=== PATIENT | male | born 1985 | race Two or more races ===

== ENCOUNTER 2018-09-11 10:48 | Inpatient (IN) | payer OTHER ==
[~2018-09-11] VITALS: Ht 175.3 cm; Wt 72.3 kg
[2018-09-11 10:56] VITALS: BP 116/70
[2018-09-11] MEDS ORDERED: PERCOCET 10-321 EACH ORAL (11:00)
[2018-09-11] MEDS ORDERED: RESTORIL22.5 MG PO (11:00)
--- NOTE | 2018-09-11 12:28 | Diagnostic Imaging Report ---
ADDENDUM - Added by Carlos Schwarz M.D. on 09/11/2018 1:11 PM (-07:00) Given irregularity of the posterior subcutaneous tissues and irregularity at the olecranon, if clinical concern for osteomyelitis dedicated MRI can be obtained. LEFT ELBOW, Views INDICATION: Pain COMPARISON: None FINDINGS: 4 views of the left elbow are obtained. Irregularity of the posterior subcutaneous tissues. There is irregularity of the olecranon seen with adjacent ossific density seen measuring 10 mm. No joint effusion. No radio-opaque foreign bodies. IMPRESSION: Irregularity of the posterior subcutaneous tissues. There is irregularity of the olecranon seen with adjacent ossific density seen measuring 10 mm. Correlation can be obtained with CT for further evaluation. <MYCVCSECTION> Critical Value Communications 09/11/18 13:10 Call From [facility] Jh HAMMOND on 09/11 13:08 (-07:00)
[2018-09-11 13:00] VITALS: BP 123/85
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
[2018-09-11 14:53] LABS: BASOPHILS % (AUTO) 1.1 % (0.0-2.0); EOSINOPHILS % (AUTO) 1.1 % (0.0-3.0); HEMATOCRIT 47.1 % (42.0-52.0); HEMOGLOBIN 15.7 G/DL (14.2-18.0); LYMPHOCYTES % (AUTO) 33.9 % (20.0-45.0); MEAN CORPUSCULAR VOLUME 88 FL (80-99); MONOCYTES % (AUTO) 6.7 % (1.0-10.0); NEUTROPHILS % (AUTO) 57.2 % (45.0-75.0); PLATELET COUNT 240 K/UL (150-450); RED BLOOD COUNT 5.37 M/UL (4.70-6.10); WHITE BLOOD COUNT 8.7 K/UL (4.8-10.8)
[2018-09-11 15:03] LABS: ANION GAP 10 mmol/L (5-15); BLOOD UREA NITROGEN 20 mg/dL (7-18); CALCIUM 9.3 MG/DL (8.5-10.1); CARBON DIOXIDE 26 MMOL/L (21-32); CHLORIDE 101 MMOL/L (98-107); CREATININE 1.3 MG/DL (0.55-1.30); POTASSIUM 4.4 MMOL/L (3.5-5.1); SODIUM 137 MMOL/L (136-145)
[2018-09-11 15:13] LABS: ALANINE AMINOTRANSFERASE 23 U/L (12-78); ALBUMIN 3.8 G/DL (3.4-5.0); ALBUMIN/GLOBULIN RATIO 0.9 (1.0-2.7); ALKALINE PHOSPHATASE 86 U/L (46-116); ASPARTATE AMINO TRANSFERASE 30 U/L (15-37); BILIRUBIN,TOTAL 0.3 MG/DL (0.2-1.0); CREATINE KINASE 187 U/L (26-308)
[2018-09-11] MEDS ORDERED: Vancomycin 1 GM in NS 275 ML IVPB ONE (15:15)
[2018-09-11 15:24] VITALS: BP 115/79
[2018-09-11 16:32] LABS: APPEARANCE,URINE CLEAR; BILIRUBIN, URINE NEGATIVE (NEGATIVE); COLOR,URINE PALE YELLOW; GLUCOSE, URINE (UA) NEGATIVE (NEGATIVE); KETONES,URINE NEGATIVE (NEGATIVE); LEUKOCYTE ESTERASE ,URINE NEGATIVE (NEGATIVE); NITRITE,URINE NEGATIVE (NEGATIVE); PH,URINE 5 (4.5-8.0); PROTEIN,URINE NEGATIVE (NEGATIVE); UROBILINOGEN,URINE NORMAL MG/DL (0.0-1.0)
--- NOTE | 2018-09-11 17:30 | General Progress Note ---
Assessment/Plan Status Narrative H AND P DICTATED ORTHO AND ID TO SEE Subjective Date patient seen: Sep 11, 2018 Time patient seen: 17:29 Constitutional: Reports: no symptoms HEENT: Reports: no symptoms Cardiovascular: Reports: no symptoms Respiratory: Reports: no symptoms Gastrointestinal/Abdominal: Reports: no symptoms Genitourinary: Reports: no symptoms Allergies: Coded Allergies: NSAIDS (NON-STEROIDAL ANTI-INFLAMMA (Verified Allergy, Unknown, 09/11/18) Objective Last 24 Hour Vital Signs Date Time Temp Pulse Resp B/P (MAP) Pulse Ox O2 Delivery O2 Flow Rate FiO2 09/11/18 15:24 98.2 78 20 115/79 98 Room Air 09/11/18 13:00 98.6 82 18 123/85 100 Room Air 09/11/18 10:56 98.4 19 116/70 97 Room Air 09/11/18 10:56 98.4 82 19 116/70 97 Room Air Laboratory Tests 09/11/18 14:10: White Blood Count 8.7, Red Blood Count 5.37, Hemoglobin 15.7, Hematocrit 47.1, Mean Corpuscular Volume 88, Mean Corpuscular Hemoglobin 29.3, Mean Corpuscular Hemoglobin Concent 33.4, Red Cell Distribution Width 12.0, Platelet Count 240, Mean Platelet Volume 5.5L, Neutrophils (%) (Auto) 57.2, Lymphocytes (%) (Auto) 33.9, Monocytes (%) (Auto) 6.7, Eosinophils (%) (Auto) 1.1, Basophils (%) (Auto ) 1.1, Prothrombin Time 10.8, Prothromb Time International Ratio 1.0, Activated Partial Thromboplast Time 26, Sodium Level 137, Potassium Level 4.4, Chloride Level 101, Carbon Dioxide Level 26, Anion Gap 10, Blood Urea Nitrogen 20H, Creatinine 1.3, Estimat Glomerular Filtration Rate > 60, Glucose Level 105, Lactic Acid Level 1.30, Calcium Level 9.3, Magnesium Level 2.3, Total Bilirubin 0.3, Aspartate Amino Transf (AST/SGOT) 30, Alanine Aminotransferase (ALT/SGPT) 23, Alkaline Phosphatase 86, Total Creatine Kinase 187, Troponin I 0.000, C- Reactive Protein, Quantitative 0.7, Pro-B-Type Natriuretic Peptide 12, Total Protein 8.2, Albumin 3.8, Globulin 4.4, Albumin/Globulin Ratio 0.9L 09/11/18 15:20: Erythrocyte Sedimentation Rate 12 09/11/18 15:49: Urine Color Pale yellow, Urine Appearance Clear, Urine pH 5, Urine Specific [place] 1.015, Urine Protein Negative, Urine Glucose (UA) Negative, Urine Ketones Negative, Urine Blood Negative, Urine Nitrite Negative, Urine Bilirubin Negative, Urine Urobilinogen Normal, Urine Leukocyte Esterase Negative, Urine Opiates Screen PositiveH, Urine Barbiturates Screen Negative, Phencyclidine (PCP ) Screen Negative, Urine Amphetamines Screen Negative, Urine Benzodiazepines Screen PositiveH, Urine Cocaine Screen PositiveH, Urine Marijuana (THC) Screen PositiveH Height (Feet): 5 Height (Inches): 9.00 Weight (Pounds): 165 Objective LWEFT ELBOW HAS OPENWOPUND AND BONE IS VISIULAIZED. Mt Pham MD Sep 11, 2018 17:30
[2018-09-11 18:00] VITALS: BP 123/80
[2018-09-11] MEDS ORDERED: EMERGEN-C 1,01000 MG PO (19:26)
[2018-09-11] MEDS ORDERED: ZINC30 M1 ORAL (19:26)
[2018-09-11] MEDS ORDERED: XANAX2 MG ORAL (19:26)
[2018-09-11] MEDS ORDERED: TEMAZEPAM30 MG ORAL (19:26)
[2018-09-11] MEDS ORDERED: VISTARIL10 MG ORAL (19:30)
[2018-09-11 20:12] VITALS: BP 131/76
[2018-09-11] MEDS ORDERED: HydrOXYzine 50mg tab ORAL PRN (20:30)
[2018-09-11] MEDS: oxyCODONE HCL/Acetaminophen 5/325mg ORAL PRN (20:41)
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
[2018-09-12] VITALS (13 sets, daily range): BP systolic 126–150; BP diastolic 57–98
[2018-09-12] MEDS: oxyCODONE HCL/Acetaminophen 5/325mg ORAL PRN (01:05)
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
[2018-09-12] MEDS: Vancomycin 1gm/D5W 275ml IVPB SCH ×4 (04:16→16:38)
[2018-09-12] MEDS: ALPRAZolam 0.5mg tab ORAL PRN (04:16)
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
--- NOTE | 2018-09-12 11:33 | Diagnostic Imaging Report ---
Indication: Shortness of breath Technique: One view of the chest Comparison: none Findings: Lungs and pleural spaces are clear. Heart size is normal Impression: No acute process
[2018-09-12] MEDS ORDERED: Hydromorphone 0.5mg/0.5ml inj IVP SCH (13:30)
[2018-09-12] MEDS ORDERED: oxyCODONE HCL/Acetaminophen 5/325mg ORAL PRN ×2 (13:30→18:00)
--- NOTE | 2018-09-12 14:34 | Diagnostic Imaging Report ---
Indication: Open wound in the elbow, abnormal recent radiograph Technique: Axial, sagittal and coronal T1-weighted images, sagittal and axial STIR, coronal T2 fat saturated PROPELLER images of the elbow Comparison: Reference made to plain radiograph 09/11/2018 Findings: There is marked increased STIR and decreased T1 signal involving the olecranon of the ulna, also extending into the proximal shaft and coronoid process. Overlying this, there is marked soft tissue irregularity and edema. There is questionably some gas within the soft tissues. There is bony proliferation of the posterior distal ulna, also demonstrated on prior radiographs, but this does not demonstrate any significant marrow signal abnormality. The posterior osseous fragments demonstrated on the plain radiograph are not well demonstrated. No definite marrow signal abnormality of the humerus or the radius is demonstrated. No significant joint effusion demonstrated. Impression: Evidence of soft tissue ulceration and inflammation of the posterior elbow, correlating with clinical findings. Marked marrow signal abnormality involving the olecranon of the ulna extending into the proximal shaft and coronoid. This is highly suspicious for osteomyelitis No definite evidence of soft tissue abscess Patient's nurse notified of the findings at the time of interpretation
[2018-09-12] MEDS ORDERED: Lidocaine 1% 10mg/ml/EPI 0.01mg/ml 50ml INJ ONE (16:36)
[2018-09-12] MEDS ORDERED: NeoSporin Gu Irrig 1ml Amp IRRIG ONE (16:36)
[2018-09-12] MEDS ORDERED: Bacitracin 50000 Units Vial ONE (16:36)
[2018-09-12] MEDS ORDERED: LR 1000ml ONE (17:30)
[2018-09-12] MEDS ORDERED: Sterile Water Irrig 1000ml IRRIG ONE (17:30)
[2018-09-12] MEDS ORDERED: NS Irrig 1000ml ONE (17:30)
[2018-09-12] MEDS ORDERED: Lidocaine 1% MPF 10mg/ml 5ml ONE (17:32)
[2018-09-12] MEDS ORDERED: Propofol 200mg/20ml IV ONE (17:32)
[2018-09-12] MEDS ORDERED: Dexamethasone 4mg/ml vial ONE (17:32)
[2018-09-12] MEDS ORDERED: Sodium Chloride 10ml vial INJ ONE (17:32)
--- NOTE | 2018-09-12 17:34 | Pre-Procedure Note/Attestation ---
Pre-Procedure Note/Attestation Complete Prior to Procedure Planned Procedure: left Procedure Narrative: Resection left elbow ulcer in preparation for skin grafting/flap, Possible bone resection Attestation I attest that I discussed the nature of the procedure; its benefits; risks and complications; and alternatives (and the risks and benefits of such alternatives ), prior to the procedure, with the patient (or the patient's legal sales account representative). I attest that, if there was a reasonable possibility of needing a blood transfusion, the patient (or the patient's legal sales account representative) was given the [facility] standardized written summary, pursuant to the Betito Marcus Blood Safety Act ([place] Health and Safety Code # 1645, as amended). I attest that I re-evaluated the patient just prior to the surgery and that there has been no change in the patient's H&P, except as documented below: Haja Prescott MD Sep 12, 2018 17:34
[2018-09-12] MEDS ORDERED: LR 1000ml 1,000 ML IVLG SCH (17:55)
[2018-09-12] MEDS ORDERED: fentaNYL 100 mcg/2 mL IV PRN (18:00)
[2018-09-12] MEDS ORDERED: ProvayBlue 5mg/ml 10ml amp INJ ONE (18:00)
[2018-09-12] MEDS ORDERED: DiphenhydrAMINE 50mg/ml Inj IVP PRN (18:00)
[2018-09-12] MEDS ORDERED: Midazolam 2mg/2ml Inj IVP PRN (18:00)
[2018-09-12] MEDS ORDERED: HYDROcodone/Acetamin 5/325 tab ORAL PRN (18:00)
[2018-09-12] MEDS ORDERED: Atropine Sulfate 0.4mg/ml inj IVP PRN (18:00)
[2018-09-12] MEDS ORDERED: Labetalol 5mg/ml 20ml vial IV PRN (18:00)
[2018-09-12] MEDS ORDERED: HYDROcodone/Acetamin 7.5/325 tab ORAL PRN (18:00)
[2018-09-12] MEDS ORDERED: LORazepam Inj 2mg/ml 1ml IV PRN (18:00)
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
--- NOTE | 2018-09-12 18:07 | Immediate Post-Op Evaluation ---
Immediate Post-Op Evalulation Immediate Post-Op Evalulation Procedure: I and D L Arm Date of Evaluation: Sep 12, 2018 Time of Evaluation: 19:09 IV Fluids: 500 LR Blood Products: 0 Estimated Blood Loss: 20 Urinary Output: 0 Blood Pressure Systolic: 134 Blood Pressure Diastolic: 95 Pulse Rate: 79 Respiratory Rate: 16 O2 Sat by Pulse Oximetry: 99 Temperature (Fahrenheit): 98.4 Pain Score (1-10): 2 Nausea: No Vomiting: No Complications 0 Patient Status: awake, reacts, patent, extubated, none Hydration Status: adequate Dru Gram Vancomycin IV Given Within 1 Hr of Incision: Yes Time Given: 17:42 Nato Cedeno MD Sep 12, 2018 18:07
--- NOTE | 2018-09-12 18:57 | Brief Operative Note ---
Immediate Post Operative Note Operative Note Pre-op Diagnosis: Left elbow chronic wound, osteomyelitis left elbow Procedure: Resection of left elbow wound in preparation for graft/flap, deep open bone biopsy of olecranon, debridement of left triceps tendon, application of negative pressure dressing, application of posterior extension splint. Post-op Diagnosis: same as pre-op Surgeon: Haja Prescott MD Additional Surgeons: Salvatore Agrawal MD Anesthesiologist: Nato Cedeno Anesthesia: general, local Specimen: yes Complications: none Condition: stable Fluids: IVF Estimated Blood Loss: minimal Drains: wound vac Implant(s) used?: No Haja Prescott MD Sep 12, 2018 18:57
[2018-09-12] MEDS: Hydromorphone 0.5mg/0.5ml inj IVP PRN ×2 (19:15→19:31)
--- NOTE | 2018-09-12 19:37 | Cardiology Report ---
APPROVED REPORT EKG Measurement Heart [id number] Normal sinus rhythm Normal ECG
--- NOTE | 2018-09-12 21:55 | General Progress Note ---
Assessment/Plan Status Narrative s/p suirgery wound vac in place unlikley he will get a positive culture will add zosyn get id to see him and will follow Assessment/Plan vanco zosyn wound vac pain control get ID eval Subjective Date patient seen: Sep 12, 2018 Time patient seen: 21:53 Constitutional: Reports: no symptoms Allergies: Coded Allergies: NSAIDS (NON-STEROIDAL ANTI-INFLAMMA (Verified Allergy, Unknown, 09/11/18) Subjective has a lot of pain no nausea no vomtiting no ches tpain Objective Last 24 Hour Vital Signs Date Time Temp Pulse Resp B/P (MAP) Pulse Ox O2 Delivery O2 Flow Rate FiO2 09/12/18 21:00 Room Air 09/12/18 20:00 98.1 68 18 140/93 (109) 97 09/12/18 19:45 98.6 69 19 131/91 98 Room Air 09/12/18 19:45 98.6 09/12/18 19:31 70 17 133/92 98 Room Air 09/12/18 19:25 71 18 150/92 98 Room Air 09/12/18 19:15 70 15 142/98 100 Room Air 09/12/18 19:08 68 14 140/88 100 Room Air 09/12/18 19:03 69 19 138/92 99 Simple Mask 6 09/12/18 18:58 98.4 79 16 134/89 99 Simple Mask 6 09/12/18 18:56 79 16 99 09/12/18 16:00 97.7 79 19 136/90 (105) 98 09/12/18 14:07 98.1 09/12/18 12:00 98.1 78 18 145/82 (103) 97 09/12/18 09:00 Room Air 09/12/18 08:00 98.2 83 19 126/77 (93) 97 09/12/18 04:44 97.7 73 18 133/77 (95) 99 09/12/18 01:35 98.2 09/12/18 00:00 98.2 64 18 127/57 (80) 99 Intake and Output 09/11/18 09/12/18 18:59 06:59 Intake Total 575.0 ml 240 ml Balance 575.0 ml 240 ml Intake Oral 240 ml IV Total 575.0 ml # Voids 1 Height (Feet): 5 Height (Inches): 9.00 Weight (Pounds): 165 General Appearance: WD/WN Neck: non-tender Cardiovascular: normal rate, regular rhythm, no JVD Respiratory/Chest: lungs clear Abdomen: soft Extremities: other - wouind vac in place Objective LWEFT ELBOW HAS OPENWOPUND AND BONE IS VISIULAIZED. Mt Pham MD Sep 12, 2018 21:55
[2018-09-12] MEDS ORDERED: Piperacillin/Tazobactam 3.375 GM in NS 110 ML IVPB SCH ×4 (22:00)
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
[2018-09-13] VITALS (7 sets, daily range): BP systolic 111–128; BP diastolic 61–82
[2018-09-13] MEDS: Vancomycin 1gm/D5W 275ml IVPB SCH ×6 (05:45→19:34)
[2018-09-13] MEDS: Piperacillin/Tazobactam 3.375 GM in NS 110 ML IVPB SCH ×3 (07:34→23:00)
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
[2018-09-13] MEDS: HYDROmorphone 1mg/ml Carpuject IVP PRN ×4 (08:17→22:53)
--- NOTE | 2018-09-13 08:47 | 48 Hour Post Anesthesia Eval ---
Post Anesthesia Evaluation Procedure: I and D L Arm Date of Evaluation: Sep 13, 2018 Airway: patent Nausea: No Vomiting: No Pain Intensity: 2 Hydration Status: adequate Cardiopulmonary Status: at baseline Mental Status/LOC: patient returned to baseline Post-Anesthesia Complications: 0 Follow-up care needed: N/A - further care as per primary team Georgina Claros MD Sep 13, 2018 08:47
--- NOTE | 2018-09-13 19:42 | General Progress Note ---
Assessment/Plan Assessment/Plan WOUND INFECTION CULTYURS MIGHT NOT BECOME POSITIVE HE WAS ON ANTIBIOTIC \PAINCONTROL [facility] WITH IV ANTIBIOITIC. Subjective Date patient seen: Sep 13, 2018 Time patient seen: 19:40 Constitutional: Reports: no symptoms HEENT: Reports: no symptoms Cardiovascular: Reports: no symptoms Respiratory: Reports: no symptoms Allergies: Coded Allergies: NSAIDS (NON-STEROIDAL ANTI-INFLAMMA (Verified Allergy, Unknown, 09/11/18) Subjective HAS PAIN GETTING DIALUDID NO FEVER NO CHILLS Objective Last 24 Hour Vital Signs Date Time Temp Pulse Resp B/P (MAP) Pulse Ox O2 Delivery O2 Flow Rate FiO2 09/13/18 18:29 99.5 09/13/18 17:11 99.5 09/13/18 16:00 98.9 80 19 128/82 (97) 99 09/13/18 12:00 98.4 69 19 118/77 (91) 99 09/13/18 09:00 Room Air 09/13/18 08:00 99.5 73 19 127/82 (97) 99 09/13/18 04:00 97.2 71 18 117/62 (80) 98 09/13/18 00:00 97.8 75 18 123/76 (92) 97 09/12/18 21:00 Room Air 09/12/18 20:00 98.1 68 18 140/93 (109) 97 09/12/18 19:45 98.6 69 19 131/91 98 Room Air 09/12/18 19:45 98.6 Intake and Output 09/12/18 09/13/18 18:59 06:59 Intake Total 600 ml 1560 ml Output Total 20 ml 1405 ml Balance 580 ml 155 ml Intake Oral 100 ml 960 ml IV Total 500 ml 600 ml Output Urine Total 1400 ml Drainage Total 5 ml Estimated Blood Loss 20 ml # Voids 2 3 # Bowel Movements 1 Laboratory Tests 09/13/18 04:00: Vancomycin Level Trough 4.7L Height (Feet): 5 Height (Inches): 9.00 Weight (Pounds): 165 General Appearance: no apparent distress EENT: PERRL/EOMI Neck: supple Cardiovascular: no JVD Respiratory/Chest: lungs clear Abdomen: soft Objective LWEFT ELBOW HAS OPENWOPUND AND BONE IS VISIULAIZED. Mt Pham MD Sep 13, 2018 19:42
[2018-09-13] MEDS: ALPRAZolam 0.5mg tab ORAL PRN (21:17)
[2018-09-14] VITALS: BP 133/80
[2018-09-14] MEDS: Vancomycin 1gm/D5W 275ml IVPB SCH ×8 (03:00→19:54)
[2018-09-14 04:00] VITALS: BP 121/74
[2018-09-14] MEDS: HYDROmorphone 1mg/ml Carpuject IVP PRN ×3 (05:59→21:04)
[2018-09-14] MEDS: Piperacillin/Tazobactam 3.375 GM in NS 110 ML IVPB SCH ×3 (06:00→21:03)
[2018-09-14 08:00] VITALS: BP 115/77
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
[2018-09-14 12:00] VITALS: BP 116/68
[2018-09-14 16:00] VITALS: BP 130/76
[2018-09-14 20:00] VITALS: BP 133/76
--- NOTE | 2018-09-14 20:08 | General Progress Note ---
Assessment/Plan Assessment/Plan WOUND INFECTION CULTYURS MIGHT NOT BECOME POSITIVE HE WAS ON ANTIBIOTIC \PAINCONTROL [facility] WITH IV ANTIBIOITIC. culture so fa rnegative per id Subjective Date patient seen: Sep 14, 2018 Time patient seen: 20:08 Constitutional: Reports: no symptoms HEENT: Reports: no symptoms Cardiovascular: Reports: no symptoms Respiratory: Reports: no symptoms Gastrointestinal/Abdominal: Reports: no symptoms Allergies: Coded Allergies: NSAIDS (NON-STEROIDAL ANTI-INFLAMMA (Verified Allergy, Unknown, 09/11/18) Subjective HAS PAIN GETTING DIALUDID NO FEVER NO CHILLS Objective Last 24 Hour Vital Signs Date Time Temp Pulse Resp B/P (MAP) Pulse Ox O2 Delivery O2 Flow Rate FiO2 09/14/18 16:00 98.6 84 18 130/76 (94) 98 09/14/18 15:51 98.4 09/14/18 14:02 98.4 09/14/18 12:00 98.4 83 19 116/68 (84) 100 09/14/18 09:00 Room Air 09/14/18 08:00 97.6 99 18 115/77 (90) 94 09/14/18 04:00 98.1 74 18 121/74 (90) 100 09/14/18 00:00 98.0 79 18 133/80 (97) 99 09/13/18 22:19 98.4 77 17 111/61 (78) 99 09/13/18 21:00 Room Air Intake and Output 09/13/18 09/14/18 19:00 07:00 Intake Total 2242.5 ml 855.0 ml Output Total 10 ml 10 ml Balance 2232.5 ml 845.0 ml Intake Oral 1500 ml 800 ml IV Total 742.5 ml 55.0 ml Drainage Total 10 ml 10 ml # Voids 3 3 # Bowel Movements 1 1 Laboratory Tests 09/13/18 23:11: Vancomycin Level Trough 18.3H Height (Feet): 5 Height (Inches): 9.00 Weight (Pounds): 164 General Appearance: WD/WN EENT: PERRL/EOMI Cardiovascular: normal rate, regular rhythm, no JVD Respiratory/Chest: lungs clear Extremities: other - wound vac in place Objective LWEFT ELBOW HAS OPENWOPUND AND BONE IS VISIULAIZED. Mt Pham MD Sep 14, 2018 20:08
[2018-09-14] MEDS: ALPRAZolam 0.5mg tab ORAL PRN (23:07)
--- NOTE | 2018-09-14 23:15 | Progress Note ---
DATE: 09/14/2018 NOTE: "POOR AUDIO QUALITY" SUBJECTIVE: The patient is status post I and D of left elbow. He is doing well. Pain is substantially improved. He had a VAC change earlier today. OBJECTIVE: GENERAL: The patient is alert and oriented. He is resting comfortably at this time in bed. EXTREMITIES/SKIN: He has a VAC in place. ASSESSMENT: Status post I and D, left elbow. DISCUSSION: At this point, he has had VAC treatment after debridement. He is going to require serial wound evaluations. Hopefully with VAC treatment, the defect will be substantially improved and allograft dermal matrix can be applied in the event that the skin does not close and ultimately skin graft would be an option at a later date. At this point, they will continue with the IV antibiotics given that there was evidence of osteomyelitis. He is to continue the VAC treatment as well. Robin Agrawal M.D. DR: Shraddha JOB#: [id number] CC: MAYNOR
[2018-09-15] VITALS (7 sets, daily range): BP systolic 118–159; BP diastolic 68–82
[2018-09-15] MEDS: HYDROmorphone 1mg/ml Carpuject IVP PRN ×3 (03:06→17:35)
[2018-09-15] MEDS: Vancomycin 1gm/D5W 275ml IVPB SCH ×8 (03:06→20:58)
[2018-09-15] MEDS: Piperacillin/Tazobactam 3.375 GM in NS 110 ML IVPB SCH (05:34)
[2018-09-15] MEDS: ALPRAZolam 0.5mg tab ORAL PRN ×3 (06:53→20:57)
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
[2018-09-15] MEDS: cefTRIAXone 1 GM in D5W 55 ML IVPB SCH (11:44)
[2018-09-15] MEDS ORDERED: Lidocaine 1% Plain 30 ml INJ PRN (13:15)
[2018-09-15] MEDS ORDERED: Heparin1,000 units/500ml Premix(Conc:2 units/ml) IV PRN (13:15)
--- NOTE | 2018-09-15 14:10 | General Progress Note ---
Assessment/Plan Assessment/Plan osteomyelitis needs 6 weeks antibiotic vanco ceftriazone and flagyl needs to be placed in senior living or stay in the hospital for duratin of treatmetn. Subjective Date patient seen: Sep 15, 2018 Time patient seen: 14:08 Constitutional: Reports: no symptoms HEENT: Reports: no symptoms Gastrointestinal/Abdominal: Reports: no symptoms Allergies: Coded Allergies: NSAIDS (NON-STEROIDAL ANTI-INFLAMMA (Verified Allergy, Unknown, 09/11/18) Subjective HAS PAIN GETTING DIALUDID NO FEVER NO CHILLS Objective Last 24 Hour Vital Signs Date Time Temp Pulse Resp B/P (MAP) Pulse Ox O2 Delivery O2 Flow Rate FiO2 09/15/18 12:44 98.9 77 16 120/82 (95) 98 09/15/18 12:30 97.9 09/15/18 09:24 97.9 09/15/18 09:00 Room Air 09/15/18 08:00 98.9 77 16 120/82 (95) 98 09/15/18 08:00 97.6 92 16 118/77 (91) 98 09/15/18 04:00 97.9 69 16 122/68 (86) 99 09/15/18 00:00 98.6 78 18 122/73 (89) 98 09/14/18 21:00 Room Air 09/14/18 20:00 97.9 74 20 133/76 (95) 99 09/14/18 16:00 98.6 84 18 130/76 (94) 98 Intake and Output 09/14/18 09/15/18 19:00 07:00 Intake Total 1727.332 ml 779.916 ml Output Total 20 ml Balance 1707.332 ml 779.916 ml Intake Oral 800 ml IV Total 927.332 ml 779.916 ml Drainage Total 20 ml # Voids 4 3 Height (Feet): 5 Height (Inches): 9.00 Weight (Pounds): 164 General Appearance: WD/WN Cardiovascular: no JVD Respiratory/Chest: lungs clear Abdomen: non tender, soft Objective LWEFT ELBOW HAS OPENWOPUND AND BONE IS VISIULAIZED. Mt Pham MD Sep 15, 2018 14:10
[2018-09-15] MEDS ORDERED: HYDROcodone/Acetamin 10/325 tab ORAL PRN ×2 (14:30→18:30)
--- NOTE | 2018-09-15 14:41 | Diagnostic Imaging Report ---
Indications: Needs long-term IV access Technique: Ultrasound confirms patent compressible right basilic vein. Total sterile technique, including sterile probe cover and sterile gel, hat, mask, sterile gown, large sterile drape, and preparation with 2% chlorhexidine utilized. Local anesthesia with 1% lidocaine. Under real-time ultrasound guidance, puncture basilic vein using 21-gauge needle, documented and archived, passage 0.018 guidewire under direct fluoroscopy, which was used to determine appropriate catheter length, exchange for 4 Setswana peel-away sheath. 4 Setswana Bard dual-lumen power PICC cut to 41 cm. It was inserted through the peel-away sheath. Peel-away sheath and guidewire removed. Catheter fixed to the skin. Both catheter ports aspirated and flushed. Patient tolerated procedure well, without immediate complication. Digital radiograph documents satisfactory catheter tip position, at the cavoatrial junction. Total fluoroscopy time 18.2 seconds. Total dose area product 1. mGym2 Total number of images: 1 Impression: Successful placement of right arm PICC under sonographic and fluoroscopic guidance, as described above.
[2018-09-15] MEDS ORDERED: HYDROmorphone 1mg/ml Carpuject IVP PRN (14:45)
[2018-09-15] MEDS: metroNIDAZOLE 500mg tab ORAL SCH ×2 (15:14→21:02)
[2018-09-15] MEDS ORDERED: Tubing IV Secondary IV ONE (15:29)
[2018-09-15] MEDS ORDERED: NS 500ML ONE (15:29)
[2018-09-15] MEDS: HYDROcodone/Acetamin 10/325 tab ORAL PRN ×2 (15:43→20:58)
[2018-09-15] MEDS: Dyna-Hex 2% Top Sol 2oz TOPIC SCH (20:58)
[2018-09-16] MEDS: HYDROcodone/Acetamin 10/325 tab ORAL PRN ×4 (00:52→20:27)
[2018-09-16] MEDS: Vancomycin 1gm/D5W 275ml IVPB SCH ×8 (01:54→20:51)
[2018-09-16] MEDS: HYDROmorphone 1mg/ml Carpuject IVP PRN ×3 (01:54→17:22)
[2018-09-16 04:00] VITALS: BP 143/82
[2018-09-16] MEDS: HydrOXYzine 50mg tab ORAL PRN (05:07)
[2018-09-16] MEDS: metroNIDAZOLE 500mg tab ORAL SCH ×3 (05:07→22:41)
[2018-09-16 08:00] VITALS: BP 152/71
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
[2018-09-16 12:00] VITALS: BP 137/78
[2018-09-16] MEDS: cefTRIAXone 1 GM in D5W 55 ML IVPB SCH (13:14)
[2018-09-16] MEDS ORDERED: NS 500ML ONE (15:53)
[2018-09-16] MEDS ORDERED: Tubing IV Secondary IV ONE (15:53)
[2018-09-16 16:00] VITALS: BP 143/80
[2018-09-16 20:00] VITALS: BP 145/82
[2018-09-16] MEDS: Dyna-Hex 2% Top Sol 2oz TOPIC SCH (20:27)
--- NOTE | 2018-09-16 21:10 | General Progress Note ---
Assessment/Plan Problem List: (1) Osteomyelitis ICD Codes: M86.9 - Osteomyelitis, unspecified SNOMED: 14702440 Qualifiers: Qualified Codes: M86.222 - Subacute osteomyelitis, left humerus (2) Skin ulcer ICD Codes: L98.499 - Non-pressure chronic ulcer of skin of other sites with unspecified severity SNOMED: 62213659 Qualifiers: Qualified Codes: L98.499 - Non-pressure chronic ulcer of skin of other sites with unspecified severity (3) Substance abuse ICD Codes: F19.10 - Other psychoactive substance abuse, uncomplicated SNOMED: 58633755 Assessment/Plan Abxs wound care Discussed with Dr Pham and family and RN Subjective Allergies: Coded Allergies: NSAIDS (NON-STEROIDAL ANTI-INFLAMMA (Verified Allergy, Unknown, 09/11/18) Subjective In NAD Objective Last 24 Hour Vital Signs Date Time Temp Pulse Resp B/P (MAP) Pulse Ox O2 Delivery O2 Flow Rate FiO2 09/16/18 16:00 99.8 143/80 (101) 09/16/18 12:00 99.0 137/78 (97) 09/16/18 09:00 Room Air 09/16/18 08:00 98.2 152/71 (98) 09/16/18 04:00 98.4 74 18 143/82 (102) 98 Intake and Output 09/15/18 09/16/18 19:00 07:00 Intake Total 600 ml 1250.000 ml Output Total 0 ml Balance 600 ml 1250.000 ml Intake Oral 600 ml 700 ml IV Total 550.000 ml Drainage Total 0 ml # Voids 4 3 # Bowel Movements 2 Laboratory Tests 09/16/18 14:15: Vancomycin Level Trough 22.8H Height (Feet): 5 Height (Inches): 9.00 Weight (Pounds): 164 Cardiovascular: normal rate Respiratory/Chest: lungs clear Abdomen: soft Edema: no edema noted Generalized Jerson Arredondo MD Sep 16, 2018 21:10
[2018-09-16] MEDS: ALPRAZolam 0.5mg tab ORAL PRN (22:41)
[2018-09-17] VITALS: BP 147/77
--- NOTE | 2018-09-17 02:45 | Progress Note ---
DATE: 09/16/2018 SUBJECTIVE: The patient has no issues overnight. His pain is relatively well controlled. Examination shows VAC in place, posterior splint is in place. Neurovascular exam is normal. ASSESSMENT: Status post incision and drainage of the left elbow. DISCUSSION: At this point, he is on 6 weeks of IV antibiotics. We will continue to do local wound care and re-evaluate his wound next week to see if it has gotten substantially smaller. In the meantime, he is going to continue on IV antibiotics. Robin Agrawal M.D. DR: Lenard JOB#: [id number] CC: MAYNOR
[2018-09-17] MEDS: Vancomycin 1gm/D5W 275ml IVPB SCH ×6 (03:00→15:25)
[2018-09-17] MEDS: HYDROmorphone 1mg/ml Carpuject IVP PRN ×3 (03:00→19:10)
[2018-09-17 04:00] VITALS: BP 147/76
[2018-09-17] MEDS: HYDROcodone/Acetamin 10/325 tab ORAL PRN ×4 (06:01→21:19)
[2018-09-17] MEDS: metroNIDAZOLE 500mg tab ORAL SCH ×3 (06:01→21:19)
[2018-09-17 08:00] VITALS: BP 169/75
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
[2018-09-17] MEDS: cefTRIAXone 1 GM in D5W 55 ML IVPB SCH (11:43)
[2018-09-17 12:00] VITALS: BP 148/71
[2018-09-17 16:00] VITALS: BP 137/79
--- NOTE | 2018-09-17 19:11 | General Progress Note ---
Assessment/Plan Problem List: (1) Osteomyelitis ICD Codes: M86.9 - Osteomyelitis, unspecified SNOMED: 45580899 Qualifiers: Qualified Codes: M86.222 - Subacute osteomyelitis, left humerus (2) Skin ulcer ICD Codes: L98.499 - Non-pressure chronic ulcer of skin of other sites with unspecified severity SNOMED: 52251565 Qualifiers: Qualified Codes: L98.499 - Non-pressure chronic ulcer of skin of other sites with unspecified severity (3) Substance abuse ICD Codes: F19.10 - Other psychoactive substance abuse, uncomplicated SNOMED: 87782137 Status Narrative Hypertension earlier today could be the result of pain Assessment/Plan Patient was reassured about his blood pressure We will start the patient on as needed clonidine Abxs wound care Discussed with RN Subjective Allergies: Coded Allergies: NSAIDS (NON-STEROIDAL ANTI-INFLAMMA (Verified Allergy, Unknown, 09/11/18) Subjective Patient was complaining about pain earlier today to the nurse His blood pressure was higher earlier today and he is worried about it Objective Last 24 Hour Vital Signs Date Time Temp Pulse Resp B/P (MAP) Pulse Ox O2 Delivery O2 Flow Rate FiO2 09/17/18 16:00 98.7 87 20 137/79 (98) 98 09/17/18 14:27 97.8 09/17/18 12:00 97.8 88 18 148/71 (96) 99 09/17/18 11:46 98.4 09/17/18 08:51 Room Air 09/17/18 08:00 98.4 97 18 169/75 (106) 99 09/17/18 04:00 98.4 70 18 147/76 (99) 98 09/17/18 00:00 98.4 82 18 147/77 (100) 98 09/16/18 21:00 Room Air 09/16/18 20:00 98.2 18 145/82 (103) 98 Intake and Output 09/16/18 09/17/18 19:00 07:00 Intake Total 1509.832 ml 1249.996 ml Output Total 30 ml Balance 1509.832 ml 1219.996 ml Intake Oral 720 ml 700 ml IV Total 789.832 ml 549.996 ml Drainage Total 30 ml # Voids 4 7 # Bowel Movements 2 Laboratory Tests 09/17/18 14:10: Vancomycin Level Trough 13.6H Height (Feet): 5 Height (Inches): 9.00 Weight (Pounds): 164 Cardiovascular: normal rate Respiratory/Chest: lungs clear Jerson Arredondo MD Sep 17, 2018 19:11
[2018-09-17 20:00] VITALS: BP 117/52
[2018-09-17] MEDS: Dyna-Hex 2% Top Sol 2oz TOPIC SCH (22:21)
[2018-09-17] MEDS: ALPRAZolam 0.5mg tab ORAL PRN (22:35)
[2018-09-17] MEDS: Vancomycin 1.25gm Premix IVPB SCH (22:54)
[2018-09-18] VITALS (7 sets, daily range): BP systolic 121–168; BP diastolic 67–99
[2018-09-18] MEDS: HYDROmorphone 1mg/ml Carpuject IVP PRN ×3 (03:32→19:26)
[2018-09-18] MEDS: metroNIDAZOLE 500mg tab ORAL SCH ×3 (05:05→21:06)
[2018-09-18] MEDS: Vancomycin 1.25gm Premix IVPB SCH ×3 (05:07→17:42)
[2018-09-18] MEDS: HYDROcodone/Acetamin 10/325 tab ORAL PRN ×2 (07:57→13:29)
[2018-09-18] MEDS: cefTRIAXone 1 GM in D5W 55 ML IVPB SCH (13:20)
--- NOTE | 2018-09-18 18:49 | General Progress Note ---
Assessment/Plan Problem List: (1) Osteomyelitis ICD Codes: M86.9 - Osteomyelitis, unspecified SNOMED: 72721771 Qualifiers: Qualified Codes: M86.222 - Subacute osteomyelitis, left humerus (2) Skin ulcer ICD Codes: L98.499 - Non-pressure chronic ulcer of skin of other sites with unspecified severity SNOMED: 79079960 Qualifiers: Qualified Codes: L98.499 - Non-pressure chronic ulcer of skin of other sites with unspecified severity (3) Substance abuse ICD Codes: F19.10 - Other psychoactive substance abuse, uncomplicated SNOMED: 46260540 (4) HTN (hypertension) ICD Codes: I10 - Essential (primary) hypertension SNOMED: 23480317 Assessment/Plan Patient received 1 dose of clonidine today I will start the patient on amlodipine if blood pressure remains high Abxs wound care Discussed with RN SOFIA and CBC tomorrow Subjective Allergies: Coded Allergies: NSAIDS (NON-STEROIDAL ANTI-INFLAMMA (Verified Allergy, Unknown, 09/11/18) Subjective Patient is in no acute distress Objective Last 24 Hour Vital Signs Date Time Temp Pulse Resp B/P (MAP) Pulse Ox O2 Delivery O2 Flow Rate FiO2 09/18/18 17:00 61 161/67 (98) 09/18/18 16:21 168/99 09/18/18 16:00 98.2 88 21 168/99 (122) 99 09/18/18 13:59 98.5 09/18/18 12:00 98.5 89 21 139/90 (106) 98 09/18/18 11:59 98.5 09/18/18 08:53 Room Air 09/18/18 08:00 98.9 99 18 146/84 (104) 99 09/18/18 04:00 97.6 88 20 121/70 (87) 97 09/18/18 00:00 97.8 84 18 128/75 (92) 100 09/17/18 21:00 Room Air 09/17/18 20:00 98.1 87 18 117/52 (73) 97 Intake and Output 09/17/18 09/18/18 19:00 07:00 Intake Total 1505 ml Output Total 0 ml Balance 1505 ml Intake Oral 900 ml IV Total 605 ml Drainage Total 0 ml # Voids 2 Laboratory Tests 09/18/18 15:00: Vancomycin Level Trough 22.2H Height (Feet): 5 Height (Inches): 9.00 Weight (Pounds): 164 Cardiovascular: normal rate Respiratory/Chest: lungs clear Edema: no edema noted Generalized Jerson Arredondo MD Sep 18, 2018 18:49
[2018-09-18] MEDS: Dyna-Hex 2% Top Sol 2oz TOPIC SCH (21:06)
[2018-09-18] MEDS: ALPRAZolam 0.5mg tab ORAL PRN (23:20)
[2018-09-19] VITALS: BP 144/76
[2018-09-19] MEDS: HYDROcodone/Acetamin 10/325 tab ORAL PRN ×3 (01:23→10:38)
[2018-09-19] MEDS: Vancomycin 1.25gm Premix IVPB SCH ×3 (02:17→18:47)
[2018-09-19] MEDS: HYDROmorphone 1mg/ml Carpuject IVP PRN ×3 (03:39→19:52)
[2018-09-19 04:00] VITALS: BP 131/72
[2018-09-19 06:23] LABS: BASOPHILS % (AUTO) 0.9 % (0.0-2.0); EOSINOPHILS % (AUTO) 2.2 % (0.0-3.0); HEMATOCRIT 43.9 % (42.0-52.0); HEMOGLOBIN 14.3 G/DL (14.2-18.0); LYMPHOCYTES % (AUTO) 40.4 % (20.0-45.0); MEAN CORPUSCULAR VOLUME 89 FL (80-99); MONOCYTES % (AUTO) 8.3 % (1.0-10.0); NEUTROPHILS % (AUTO) 48.2 % (45.0-75.0); PLATELET COUNT 207 K/UL (150-450); RED BLOOD COUNT 4.94 M/UL (4.70-6.10); RED CELL DISTRIBUTION WIDTH 12.1 % (11.6-14.8); WHITE BLOOD COUNT 5.9 K/UL (4.8-10.8)
[2018-09-19] MEDS: metroNIDAZOLE 500mg tab ORAL SCH ×3 (06:34→21:53)
[2018-09-19 06:46] LABS: ANION GAP 7 mmol/L (5-15); BLOOD UREA NITROGEN 14 mg/dL (7-18); CALCIUM 9.3 MG/DL (8.5-10.1); CARBON DIOXIDE 28 MMOL/L (21-32); CHLORIDE 103 MMOL/L (98-107); CREATININE 0.8 MG/DL (0.55-1.30); POTASSIUM 3.8 MMOL/L (3.5-5.1); SODIUM 138 MMOL/L (136-145)
[2018-09-19 08:00] VITALS: BP 125/81
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
[2018-09-19 12:00] VITALS: BP 149/79
[2018-09-19] MEDS: cefTRIAXone 1 GM in D5W 55 ML IVPB SCH (12:39)
--- NOTE | 2018-09-19 14:30 | General Progress Note ---
Assessment/Plan Problem List: (1) Osteomyelitis ICD Codes: M86.9 - Osteomyelitis, unspecified SNOMED: 47765832 Qualifiers: Qualified Codes: M86.222 - Subacute osteomyelitis, left humerus (2) Skin ulcer ICD Codes: L98.499 - Non-pressure chronic ulcer of skin of other sites with unspecified severity SNOMED: 26953944 Qualifiers: Qualified Codes: L98.499 - Non-pressure chronic ulcer of skin of other sites with unspecified severity (3) Substance abuse ICD Codes: F19.10 - Other psychoactive substance abuse, uncomplicated SNOMED: 46630804 (4) HTN (hypertension) Assessment & Plan: BP is better today ICD Codes: I10 - Essential (primary) hypertension SNOMED: 87054063 Assessment: Patient received 1 dose of clonidine today I will start the patient on amlodipine if blood pressure remains high Abxs wound care Discussed with RN and mother Discussed with Dr Pham will arrange Home abxs and wound care DC when those are available Subjective Allergies: Coded Allergies: NSAIDS (NON-STEROIDAL ANTI-INFLAMMA (Verified Allergy, Unknown, 09/11/18) Subjective Patient is in no acute distress He wants to leave Objective Last 24 Hour Vital Signs Date Time Temp Pulse Resp B/P (MAP) Pulse Ox O2 Delivery O2 Flow Rate FiO2 09/19/18 12:00 96.4 79 18 149/79 (102) 99 09/19/18 08:15 Room Air 09/19/18 08:00 98.4 92 18 125/81 (96) 97 09/19/18 04:00 97.7 76 18 131/72 (91) 100 09/19/18 00:00 97.9 75 18 144/76 (98) 100 09/18/18 21:00 Room Air 09/18/18 20:00 98.4 78 18 152/98 (116) 99 09/18/18 17:00 61 161/67 (98) 09/18/18 16:21 168/99 09/18/18 16:00 98.2 88 21 168/99 (122) 99 Intake and Output 09/18/18 09/19/18 18:59 06:59 Intake Total 1720 ml 275 ml Output Total 0 ml Balance 1720 ml 275 ml Intake Oral 1390 ml IV Total 330 ml 275 ml Drainage Total 0 ml # Voids 5 Laboratory Tests 09/18/18 15:00: Vancomycin Level Trough 22.2H 09/19/18 05:40: White Blood Count 5.9, Red Blood Count 4.94, Hemoglobin 14.3, Hematocrit 43.9, Mean Corpuscular Volume 89, Mean Corpuscular Hemoglobin 28.9, Mean Corpuscular Hemoglobin Concent 32.5, Red Cell Distribution Width 12.1, Platelet Count 207, Mean Platelet Volume 5.2L, Neutrophils (%) (Auto) 48.2, Lymphocytes (%) (Auto) 40.4, Monocytes (%) (Auto) 8.3, Eosinophils (%) (Auto) 2.2, Basophils (%) (Auto ) 0.9, Sodium Level 138, Potassium Level 3.8, Chloride Level 103, Carbon Dioxide Level 28, Anion Gap 7, Blood Urea Nitrogen 14, Creatinine 0.8, Estimat Glomerular Filtration Rate > 60, Glucose Level 98, Calcium Level 9.3 Height (Feet): 5 Height (Inches): 9.00 Weight (Pounds): 164 Cardiovascular: normal rate Respiratory/Chest: lungs clear Edema: no edema noted Generalized Jerson Arredondo MD Sep 19, 2018 14:30
[2018-09-19] MEDS ORDERED: Tubing IV Secondary IV ONE (14:35)
[2018-09-19 16:00] VITALS: BP 124/81
[2018-09-19 20:00] VITALS: BP 126/72
[2018-09-19] MEDS: Dyna-Hex 2% Top Sol 2oz TOPIC SCH (21:54)
[2018-09-19] MEDS: ALPRAZolam 0.5mg tab ORAL PRN (23:41)
[2018-09-20] VITALS: BP 126/79
[2018-09-20] MEDS: Vancomycin 1.25gm Premix IVPB SCH ×3 (02:09→18:25)
[2018-09-20 04:00] VITALS: BP 127/78
[2018-09-20] MEDS: HYDROmorphone 1mg/ml Carpuject IVP PRN ×3 (04:54→21:00)
[2018-09-20] MEDS: metroNIDAZOLE 500mg tab ORAL SCH ×3 (06:02→20:58)
[2018-09-20 08:00] VITALS: BP 135/89
[2018-09-20 12:00] VITALS: BP 129/83
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
[2018-09-20] MEDS: cefTRIAXone 1 GM in D5W 55 ML IVPB SCH (13:46)
[2018-09-20 16:00] VITALS: BP 131/80
[2018-09-20 20:00] VITALS: BP 149/82
--- NOTE | 2018-09-20 20:37 | General Progress Note ---
Assessment/Plan Problem List: (1) Osteomyelitis ICD Codes: M86.9 - Osteomyelitis, unspecified SNOMED: 37967573 Qualifiers: Qualified Codes: M86.222 - Subacute osteomyelitis, left humerus (2) Skin ulcer ICD Codes: L98.499 - Non-pressure chronic ulcer of skin of other sites with unspecified severity SNOMED: 63608000 Qualifiers: Qualified Codes: L98.499 - Non-pressure chronic ulcer of skin of other sites with unspecified severity (3) Substance abuse ICD Codes: F19.10 - Other psychoactive substance abuse, uncomplicated SNOMED: 54671392 (4) HTN (hypertension) Assessment & Plan: BP is mostly ok ICD Codes: I10 - Essential (primary) hypertension SNOMED: 30472350 Assessment: Abxs wound care Discussed with pillowcase turner Discussed with Dr Pham Home abxs and wound vac being arranged DC when those are available Subjective Allergies: Coded Allergies: NSAIDS (NON-STEROIDAL ANTI-INFLAMMA (Verified Allergy, Unknown, 09/11/18) Subjective Patient is in no acute distress Objective Last 24 Hour Vital Signs Date Time Temp Pulse Resp B/P (MAP) Pulse Ox O2 Delivery O2 Flow Rate FiO2 09/20/18 20:00 98.0 93 18 149/82 (104) 99 09/20/18 16:00 98.4 87 18 131/80 (97) 99 09/20/18 12:00 98.1 92 19 129/83 (98) 98 09/20/18 09:00 Room Air 09/20/18 08:00 97.9 100 20 135/89 (104) 99 09/20/18 04:00 97.9 86 18 127/78 (94) 98 09/20/18 00:00 98.3 83 18 126/79 (95) 98 90 09/19/18 21:00 Room Air Intake and Output 09/19/18 09/20/18 18:59 06:59 Intake Total 600 ml 500 ml Output Total 0 ml Balance 600 ml 500 ml Intake Oral 600 ml 500 ml Drainage Total 0 ml # Voids 6 # Bowel Movements 2 Height (Feet): 5 Height (Inches): 9.00 Weight (Pounds): 164 Cardiovascular: normal rate Respiratory/Chest: lungs clear Edema: no edema noted Generalized Jerson Arredondo MD Sep 20, 2018 20:37
[2018-09-20] MEDS: Dyna-Hex 2% Top Sol 2oz TOPIC SCH (20:57)
[2018-09-21] MEDS: ALPRAZolam 0.5mg tab ORAL PRN ×2 (00:27→23:29)
[2018-09-21 01:00] VITALS: BP 120/69
[2018-09-21] MEDS: Vancomycin 1.25gm Premix IVPB SCH ×3 (01:51→17:38)
[2018-09-21 05:00] VITALS: BP 150/82
[2018-09-21] MEDS: metroNIDAZOLE 500mg tab ORAL SCH ×3 (05:08→21:31)
[2018-09-21] MEDS: HYDROmorphone 1mg/ml Carpuject IVP PRN ×3 (05:08→21:32)
[2018-09-21 08:00] VITALS: BP 123/94
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
--- NOTE | 2018-09-21 11:09 | General Progress Note ---
Assessment/Plan Problem List: (1) Osteomyelitis ICD Codes: M86.9 - Osteomyelitis, unspecified SNOMED: 22480138 Qualifiers: Qualified Codes: M86.222 - Subacute osteomyelitis, left humerus (2) Skin ulcer ICD Codes: L98.499 - Non-pressure chronic ulcer of skin of other sites with unspecified severity SNOMED: 68413653 Qualifiers: Qualified Codes: L98.499 - Non-pressure chronic ulcer of skin of other sites with unspecified severity (3) Substance abuse ICD Codes: F19.10 - Other psychoactive substance abuse, uncomplicated SNOMED: 52898543 (4) HTN (hypertension) Assessment & Plan: BP is mostly ok ICD Codes: I10 - Essential (primary) hypertension SNOMED: 60528104 Assessment: Continue antibiotics per ID wound care with wound VAC Discussed with home health care case manager and patient regarding discharge There are still issues with providing adequate care for the patient at home that includes getting the wound VAC home health as well as IV antibiotics Patient will be discharged once those issues are resolved Case was also discussed with ID hadoop consultant as well as Dr. Prescott, plastic surgeon Subjective Allergies: Coded Allergies: NSAIDS (NON-STEROIDAL ANTI-INFLAMMA (Verified Allergy, Unknown, 09/11/18) Subjective Patient has no new complaints Objective Last 24 Hour Vital Signs Date Time Temp Pulse Resp B/P (MAP) Pulse Ox O2 Delivery O2 Flow Rate FiO2 09/21/18 08:00 98.0 102 20 123/94 (104) 99 09/21/18 05:38 97.6 09/21/18 05:00 97.6 93 18 150/82 (104) 98 09/21/18 01:00 97.6 109 18 120/69 (86) 98 09/20/18 21:00 Room Air 09/20/18 20:00 98.0 93 18 149/82 (104) 99 09/20/18 16:00 98.4 87 18 131/80 (97) 99 09/20/18 12:00 98.1 92 19 129/83 (98) 98 Intake and Output 09/20/18 09/21/18 19:00 07:00 Intake Total 420 ml 1050.000 ml Output Total 0 ml Balance 420 ml 1050.000 ml Intake Oral 420 ml 500 ml IV Total 550.000 ml Drainage Total 0 ml # Voids 5 3 # Bowel Movements 1 Height (Feet): 5 Height (Inches): 9.00 Weight (Pounds): 159 Cardiovascular: normal rate Respiratory/Chest: lungs clear Edema: no edema noted Generalized Jerson Arredondo MD Sep 21, 2018 11:09
[2018-09-21 12:00] VITALS: BP 128/83
[2018-09-21] MEDS: cefTRIAXone 1 GM in D5W 55 ML IVPB SCH (12:19)
[2018-09-21 16:00] VITALS: BP 138/86
[2018-09-21] MEDS ORDERED: METRONIDAZOLE500 MG ORAL (17:33)
[2018-09-21] MEDS ORDERED: CEFTRIAXON1 GM/50 ML IV (17:34)
[2018-09-21] MEDS: HYDROcodone/Acetamin 10/325 tab ORAL PRN (17:38)
[2018-09-21] MEDS: HydrOXYzine 50mg tab ORAL PRN (18:42)
[2018-09-21 20:00] VITALS: BP 117/84
[2018-09-21] MEDS: Dyna-Hex 2% Top Sol 2oz TOPIC SCH (21:31)
[2018-09-22] VITALS (7 sets, daily range): BP systolic 124–159; BP diastolic 67–85
[2018-09-22] MEDS: Vancomycin 1.25gm Premix IVPB SCH ×3 (02:08→17:04)
[2018-09-22] MEDS: metroNIDAZOLE 500mg tab ORAL SCH ×3 (05:39→22:10)
[2018-09-22] MEDS: HYDROmorphone 1mg/ml Carpuject IVP PRN ×3 (05:39→22:10)
[2018-09-22 07:12] LABS: BASOPHILS % (AUTO) 0.6 % (0.0-2.0); EOSINOPHILS % (AUTO) 1.3 % (0.0-3.0); HEMOGLOBIN 13.1 G/DL (14.2-18.0); LYMPHOCYTES % (AUTO) 26.4 % (20.0-45.0); MEAN CORPUSCULAR VOLUME 89 FL (80-99); MONOCYTES % (AUTO) 9.6 % (1.0-10.0); PLATELET COUNT 194 K/UL (150-450); RED BLOOD COUNT 4.51 M/UL (4.70-6.10); RED CELL DISTRIBUTION WIDTH 11.8 % (11.6-14.8); WHITE BLOOD COUNT 5.5 K/UL (4.8-10.8)
[2018-09-22 07:22] LABS: ALANINE AMINOTRANSFERASE 29 U/L (12-78); ALBUMIN 3.2 G/DL (3.4-5.0); ALBUMIN/GLOBULIN RATIO 0.9 (1.0-2.7); ALKALINE PHOSPHATASE 75 U/L (46-116); ANION GAP 9 mmol/L (5-15); ASPARTATE AMINO TRANSFERASE 14 U/L (15-37); BILIRUBIN,TOTAL 0.1 MG/DL (0.2-1.0); BLOOD UREA NITROGEN 14 mg/dL (7-18); CALCIUM 8.7 MG/DL (8.5-10.1); CARBON DIOXIDE 26 MMOL/L (21-32); CHLORIDE 107 MMOL/L (98-107); CREATININE 0.8 MG/DL (0.55-1.30); SODIUM 142 MMOL/L (136-145)
[2018-09-22] MEDS: cefTRIAXone 1 GM in D5W 55 ML IVPB SCH (12:22)
[2018-09-22] MEDS: HYDROcodone/Acetamin 10/325 tab ORAL PRN (12:27)
--- NOTE | 2018-09-22 15:00 | General Progress Note ---
Assessment/Plan Problem List: (1) Osteomyelitis ICD Codes: M86.9 - Osteomyelitis, unspecified SNOMED: 53442156 Qualifiers: Qualified Codes: M86.222 - Subacute osteomyelitis, left humerus (2) Skin ulcer ICD Codes: L98.499 - Non-pressure chronic ulcer of skin of other sites with unspecified severity SNOMED: 70178735 Qualifiers: Qualified Codes: L98.499 - Non-pressure chronic ulcer of skin of other sites with unspecified severity (3) Substance abuse ICD Codes: F19.10 - Other psychoactive substance abuse, uncomplicated SNOMED: 77278354 (4) HTN (hypertension) Assessment & Plan: BP is mostly ok ICD Codes: I10 - Essential (primary) hypertension SNOMED: 76557913 Assessment: Continue antibiotics per ID wound care with wound VAC Discussed with RN The wound VAC was delivered today to the patient's room Patient will be discharged with a PICC line once home health is arranged Subjective Allergies: Coded Allergies: NSAIDS (NON-STEROIDAL ANTI-INFLAMMA (Verified Allergy, Unknown, 09/11/18) Subjective Patient has no new complaints Objective Last 24 Hour Vital Signs Date Time Temp Pulse Resp B/P (MAP) Pulse Ox O2 Delivery O2 Flow Rate FiO2 09/22/18 12:57 98.1 09/22/18 12:57 98.1 09/22/18 12:00 98.1 97 18 127/69 (88) 98 09/22/18 09:00 Room Air 09/22/18 08:00 97.7 105 19 124/68 (86) 98 09/22/18 05:12 97.6 90 16 142/80 (100) 97 09/22/18 04:00 97.6 90 16 142/80 (100) 97 09/22/18 00:00 98.9 80 19 124/69 (87) 98 09/21/18 21:00 Room Air 09/21/18 20:00 98.2 88 16 117/84 (95) 98 09/21/18 16:00 99.4 96 18 138/86 (103) 98 Intake and Output 09/21/18 09/22/18 19:00 07:00 Intake Total 1204.999 ml 450 ml Output Total 10 ml Balance 1194.999 ml 450 ml Intake Oral 600 ml 450 ml IV Total 604.999 ml Drainage Total 10 ml # Voids 3 5 # Bowel Movements 2 Laboratory Tests 09/22/18 06:00: White Blood Count 5.5, Red Blood Count 4.51L, Hemoglobin 13.1L, Hematocrit 40.0L , Mean Corpuscular Volume 89, Mean Corpuscular Hemoglobin 28.9, Mean Corpuscular Hemoglobin Concent 32.6, Red Cell Distribution Width 11.8, Platelet Count 194, Mean Platelet Volume 5.3L, Neutrophils (%) (Auto) 62.0, Lymphocytes ( %) (Auto) 26.4, Monocytes (%) (Auto) 9.6, Eosinophils (%) (Auto) 1.3, Basophils (%) (Auto) 0.6, Sodium Level 142, Potassium Level 4.0, Chloride Level 107, Carbon Dioxide Level 26, Anion Gap 9, Blood Urea Nitrogen 14, Creatinine 0.8, Estimat Glomerular Filtration Rate > 60, Glucose Level 101, Calcium Level 8.7, Total Bilirubin 0.1L, Aspartate Amino Transf (AST/SGOT) 14L, Alanine Aminotransferase (ALT/SGPT) 29, Alkaline Phosphatase 75, Total Protein 6.9, Albumin 3.2L, Globulin 3.7, Albumin/Globulin Ratio 0.9L Height (Feet): 5 Height (Inches): 9.00 Weight (Pounds): 159 Cardiovascular: normal rate Respiratory/Chest: lungs clear Edema: no edema noted Generalized Jerson Arredondo MD Sep 22, 2018 15:00
[2018-09-22] MEDS: HydrOXYzine 50mg tab ORAL PRN (17:04)
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
[2018-09-22] MEDS ORDERED: HYDROcodone/Acetamin 10/325 tab ORAL PRN (18:15)
[2018-09-22] MEDS: Dyna-Hex 2% Top Sol 2oz TOPIC SCH (22:09)
[2018-09-23] VITALS: BP 110/89
[2018-09-23] MEDS: ALPRAZolam 0.5mg tab ORAL PRN (01:05)
[2018-09-23] MEDS: Vancomycin 1.25gm Premix IVPB SCH ×2 (01:06→10:27)
[2018-09-23 04:00] VITALS: BP 144/80
[2018-09-23] MEDS: HYDROmorphone 1mg/ml Carpuject IVP PRN (06:13)
[2018-09-23] MEDS: metroNIDAZOLE 500mg tab ORAL SCH (06:13)
[2018-09-23 08:00] VITALS: BP 135/78
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
[2018-09-23 12:00] VITALS: BP 112/72
[2018-09-23] MEDS: cefTRIAXone 1 GM in D5W 55 ML IVPB SCH (12:12)
[2018-09-23] MEDS ORDERED: ROCEPHIN2 GM/50 ML IV (12:51)
--- NOTE | 2018-09-23 13:34 | General Progress Note ---
Assessment/Plan Problem List: (1) Osteomyelitis ICD Codes: M86.9 - Osteomyelitis, unspecified SNOMED: 23090482 Qualifiers: Qualified Codes: M86.222 - Subacute osteomyelitis, left humerus (2) Skin ulcer ICD Codes: L98.499 - Non-pressure chronic ulcer of skin of other sites with unspecified severity SNOMED: 09664646 Qualifiers: Qualified Codes: L98.499 - Non-pressure chronic ulcer of skin of other sites with unspecified severity (3) Substance abuse ICD Codes: F19.10 - Other psychoactive substance abuse, uncomplicated SNOMED: 95293217 (4) HTN (hypertension) Assessment & Plan: BP is mostly ok ICD Codes: I10 - Essential (primary) hypertension SNOMED: 04091184 Assessment: Continue antibiotics per ID wound care with wound VAC Discussed with RN Patient is being discharged today. RN is going over discharge instructions with the patient at this time Subjective Allergies: Coded Allergies: NSAIDS (NON-STEROIDAL ANTI-INFLAMMA (Verified Allergy, Unknown, 09/11/18) Subjective Patient has no new complaints Objective Last 24 Hour Vital Signs Date Time Temp Pulse Resp B/P (MAP) Pulse Ox O2 Delivery O2 Flow Rate FiO2 09/23/18 12:00 98.3 77 18 112/72 (85) 99 09/23/18 08:00 98.2 97 19 135/78 (97) 99 09/23/18 04:00 98.5 82 20 144/80 (101) 98 09/23/18 00:00 98.1 86 19 110/89 (96) 100 09/22/18 21:00 Room Air 09/22/18 20:00 97.8 87 19 159/85 (109) 98 09/22/18 16:00 98.2 101 19 145/67 (93) 100 Intake and Output 09/22/18 09/23/18 19:00 07:00 Intake Total 1500 ml 635.000 ml Balance 1500 ml 635.000 ml Intake Oral 1500 ml 360 ml IV Total 275.000 ml # Voids 2 Height (Feet): 5 Height (Inches): 9.00 Weight (Pounds): 159 Cardiovascular: normal rate Respiratory/Chest: lungs clear Edema: no edema noted Jerson Oliver MD Sep 23, 2018 13:34
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
== END 2018-09-23 13:45 | disposition home IV services (08) | DRG 479 ==
LOC: EMR 11:30 → 4E 15:30 → EDBEDREQ 16:13 → 3E 18:00 → EDBEDREQ 18:44
PROC: 0LB40ZZ Excision of Left Upper Arm Tendon, Open Approach (ICD-10-PCS; principal; 2018-09-12 17:30)
PROC: 0PBD0ZX Excision of Left Humeral Head, Open Approach, Diagnostic (ICD-10-PCS; principal; 2018-09-12 17:30)
PROC: 2W1BX6Z Compression of Left Upper Arm using Pressure Dressing (ICD-10-PCS; principal; 2018-09-12 17:30)
DX: M86.9 Osteomyelitis, unspecified (principal); L98.499 Non-pressure chronic ulcer of skin of other sites with unspecified severity; I10 Essential (primary) hypertension; F41.9 Anxiety disorder, unspecified; F43.10 Post-traumatic stress disorder, unspecified; G47.00 Insomnia, unspecified; F14.10 Cocaine abuse, uncomplicated; F12.10 Cannabis abuse, uncomplicated
CPT/HCPCS: 36415; 36569; 71045; 76937; 80048; 80053; 80202; 80307; 81003; 82550; 83605; 83735; 83880; 84484; 85025; 85610; 85651; 85730; 86140; 86850; 86900; 86901; 87040; 87070; 87075; 87081; 87181; 87205; 93005; 94003; 94150; 96361; 96365; 99285; J2405

== ENCOUNTER 2018-10-17 09:49 | Outpatient (RCR) | payer OTHER ==
[~2018-10-17] VITALS: Ht 175.3 cm; Wt 72.6 kg
[~2018-10-17 09:49] MED LIST: CEFTRIAXON1 GM/50 ML IV; EMERGEN-C 1,01000 MG PO; METRONIDAZOLE500 MG ORAL; PERCOCET 10-321 EACH ORAL; RESTORIL22.5 MG PO; ROCEPHIN2 GM/50 ML IV; TEMAZEPAM30 MG ORAL; VISTARIL10 MG ORAL; XANAX2 MG ORAL; ZINC30 M1 ORAL
== END 2018-11-04 | disposition home or self-care (01) ==
LOC: WCC 09:49
DX: L98.492 Non-pressure chronic ulcer of skin of other sites with fat layer exposed (principal); T22.322 Burn of third degree of left elbow; X58.XXXS Exposure to other specified factors, sequela; Z86.14 Personal history of Methicillin resistant Staphylococcus aureus infection; Z88.6 Allergy status to analgesic agent; Z79.899 Other long term (current) drug therapy
CPT/HCPCS: 11042; 15271; G0463; Q4133

== ENCOUNTER 2018-11-07 10:41 | Outpatient (RCR) | payer OTHER | END 2018-12-04 | disposition home or self-care (01) | LOC: WCC 10:41 | DX: L98.492 Non-pressure chronic ulcer of skin of other sites with fat layer exposed (principal); T22.322 Burn of third degree of left elbow; X58.XXXS Exposure to other specified factors, sequela; Z88.6 Allergy status to analgesic agent; Z86.14 Personal history of Methicillin resistant Staphylococcus aureus infection; Z79.899 Other long term (current) drug therapy | CPT/HCPCS: 15271; Q4133 ==

== ENCOUNTER 2019-02-07 11:23 | Outpatient (RCR) | payer OTHER | END 2019-03-06 | disposition home or self-care (01) | LOC: WCC 11:23 | DX: L98.492 Non-pressure chronic ulcer of skin of other sites with fat layer exposed (principal); T22.322 Burn of third degree of left elbow; X58.XXXS Exposure to other specified factors, sequela; Z86.14 Personal history of Methicillin resistant Staphylococcus aureus infection; Z88.6 Allergy status to analgesic agent | CPT/HCPCS: 11056 ==